=== PATIENT | female | born 1975 | race Caucasian/White ===

== ENCOUNTER 2018-06-16 14:16 | Emergency (ER) | payer SELFPAY ==
[~2018-06-16] VITALS: Ht 152.4 cm; Wt 45.4 kg
[~2018-06-16 14:16] MED LIST: AMOXICILLIN500 MG PO
[2018-06-16 14:32] VITALS: BP 130/90
[2018-06-16] MEDS ORDERED: PROCARDIA10 MG PO (15:16)
== END 2018-06-16 15:23 | disposition home or self-care (01) ==
LOC: ED 14:16
DX: I73.00 Raynaud's syndrome without gangrene (principal); F17.200 Nicotine dependence, unspecified, uncomplicated

== ENCOUNTER → 2018-06-29 | Outpatient (CLI) | payer SELFPAY ==
[~2018-06-29] MED LIST changes: +PROCARDIA10 MG PO
== END | disposition home or self-care (01) ==
LOC: RESCLI 03:45
DX: Z12.31 Encounter for screening mammogram for malignant neoplasm of breast (principal); Z12.4 Encounter for screening for malignant neoplasm of cervix; I73.00 Raynaud's syndrome without gangrene; R03.0 Elevated blood-pressure reading, without diagnosis of hypertension; F17.200 Nicotine dependence, unspecified, uncomplicated; Z76.89 Persons encountering health services in other specified circumstances; Z71.6 Tobacco abuse counseling; Z88.8 Allergy status to other drugs, medicaments and biological substances

== ENCOUNTER 2019-08-22 15:29 | Emergency (ER) | payer SELFPAY ==
[~2019-08-22] VITALS: Ht 152.4 cm; Wt 44.5 kg
[2019-08-22 17:03] VITALS: BP 165/85
== END 2019-08-22 17:09 | disposition home or self-care (01) ==
LOC: ED 15:29
DX: I10 Essential (primary) hypertension (principal)

== ENCOUNTER 2025-03-11 18:06 | Emergency (ER) | payer SELFPAY ==
[~2025-03-11] VITALS: Ht 149.8 cm; Wt 47.2 kg
[2025-03-11 19:13] LABS: BASO # 0.1 10*3/uL (0.0-0.1); BASO % 0.5 % (0.0-1.0); EOS # 0.1 10*3/uL (0.0-0.4); EOS % 0.5 % (1.0-4.0); MEAN CELL VOLUME 98.2 fl (81.0-99.0); MEAN CORPUSCULAR HGB 31.9 pg (27.0-31.0); MEAN PLATELET VOLUME 9.5 fl (9.6-12.3); MONO # 0.7 10*3/uL (0.1-1.0); MONO % 7.5 % (3.0-9.0); NEUT # 7.5 10*3/uL (2.3-7.9); NEUT % 79.0 % (47.0-73.0); NUCLEATED RED BLOOD CELL 0.0 % (0.0-0.0); NUCLEATED RED BLOOD CELL 0.0 10*3/uL (0.0-0.0); PLATELET COUNT AUTOMATED 264 10*3/uL (130-400); RED CELL DISTRI WIDTH 12.6 % (0-14.5)
[2025-03-11 19:25] LABS: ACT PARTIAL THROMBO TIME 27.3 SECONDS (20.0-32.1)
[2025-03-11 19:36] LABS: BUN 16 mg/dl (9-23)
[2025-03-11 20:30] VITALS: BP 135/90
[2025-03-11] MEDS ORDERED: SODIUM CHLORIDE 0.9% 1,000 ML IV ONE (20:40)
[2025-03-11] MEDS ORDERED: Metoclopramide Hydrochloride 10 MG/2 ML VIAL IV ONE (20:40)
== END 2025-03-11 23:06 | disposition home or self-care (01) ==
LOC: ED 18:06
PROVIDERS: Internal Medicine
DX: R11.10 Vomiting, unspecified (principal); I10 Essential (primary) hypertension; Z79.899 Other long term (current) drug therapy

== ENCOUNTER → 2025-03-18 | Outpatient (CLI) | payer SELFPAY | END | disposition home or self-care (01) | LOC: RESCLI 10:15 | PROVIDERS: ATTEND Internal Medicine | DX: I73.00 Raynaud's syndrome without gangrene (principal); I10 Essential (primary) hypertension; F17.210 Nicotine dependence, cigarettes, uncomplicated; Z79.899 Other long term (current) drug therapy; Z82.49 Family history of ischemic heart disease and other diseases of the circulatory system; Z88.8 Allergy status to other drugs, medicaments and biological substances ==

== ENCOUNTER → 2025-04-22 | Outpatient (CLI) | payer SELFPAY | END | disposition home or self-care (01) | LOC: RESCLI 09:21 | PROVIDERS: ATTEND Internal Medicine | DX: I73.00 Raynaud's syndrome without gangrene (principal); I10 Essential (primary) hypertension ==